=== PATIENT | male | born 1975 | race Two or more races ===

== ENCOUNTER 2018-06-03 07:59 | Day surgery (SDC) | payer BC, OTHER ==
[~2018-06-03] VITALS: Ht 177.8 cm; Wt 92.1 kg
[2018-06-03] VITALS (9 sets, daily range): BP systolic 131–148; BP diastolic 78–96
[2018-06-03] MEDS ORDERED: ASPIRIN81 MG ORAL (08:23)
[2018-06-03] MEDS ORDERED: fentaNYL 100 mcg/2 mL IV ONE (09:05)
[2018-06-03] MEDS ORDERED: Midazolam 2mg/2ml Inj ONE (09:05)
--- NOTE | 2018-06-03 09:12 | Pre-Procedure Note/Attestation ---
Pre-Procedure Note/Attestation Complete Prior to Procedure Planned Procedure: not applicable Procedure Narrative: esophagogastroduodenoscopy and colonoscopy Indications for Procedure Pre-Operative Diagnosis: abd pain Attestation I attest that I discussed the nature of the procedure; its benefits; risks and complications; and alternatives (and the risks and benefits of such alternatives ), prior to the procedure, with the patient (or the patient's legal territory representative). I attest that, if there was a reasonable possibility of needing a blood transfusion, the patient (or the patient's legal territory representative) was given the [facility] standardized written summary, pursuant to the Rene Bowdens Blood Safety Act ([place] Health and Safety Code # 1645, as amended). I attest that I re-evaluated the patient just prior to the surgery and that there has been no change in the patient's H&P, except as documented below: Adelso Rodriguez MD Jun 03, 2018 09:11
--- NOTE | 2018-06-03 09:13 | Short Stay Surgery H&P ---
History of Present Illness History of Present Illness Chief Complaint abd pain JORGE Benton is a 43 year old male who was admitted on for Abdominal Pain, Anemia Patient History Allergies: Coded Allergies: No Known Allergies (Unverified , 05/31/18) PAST MEDICAL HISTORY: (1) Coagulopathy (2) Mesenteric ischemia (3) Post-splenectomy Medication History Scheduled Aspirin* (Aspirin*), 81 MG ORAL DAILY, (Reported) Review of Systems Cardiovascular: Reports: no symptoms Respiratory: Reports: no symptoms Skeletal: Reports: no symptoms Gastrointestinal: Reports: no symptoms Genitourinary: Reports: no symptoms Neurologic: Reports: no symptoms Endocrine: Reports: no symptoms Hematologic: Reports: no symptoms Physical Exam Vital Signs Last Vital Signs Date Time Temp Pulse Resp B/P (MAP) Pulse Ox O2 Delivery O2 Flow Rate FiO2 06/03/18 08:25 97.8 73 18 131/91 97 Room Air Skin: normal HENT: normal Heart: normal Lungs: normal Abdomen: normal Extremities: normal Plan Plan of Care esophagogastroduodenoscopycand colonoscopy Attestation Are the patient's medical conditions optimized for surgery? Attestation Response: yes Adelso Rodriguez MD Jun 03, 2018 09:13
--- NOTE | 2018-06-03 10:38 | Anethesia Preoperative Eval ---
Anesthesia Pre-op PMH/ROS General Date of Evaluation: Jun 03, 2018 Time of Evaluation: 10:05 Anesthesiologist: [place] ASA Score: ASA 2 Mallampati Score Class I : Soft palate, uvula, fauces, pillars visible Class II: Soft palate, uvula, fauces visible Class III: Soft palate, base of uvula visible Class IV: Only hard plate visible Mallampati Classification: Class II Surgeon: Jennifer Diagnosis: Abdominal pain Surgical Procedure: EGD Colonoscopy Anesthesia History: none Family History: no anesthesia problems Allergies: Coded Allergies: No Known Allergies (Unverified , 05/31/18) Medications: see eMAR Patient NPO?: Yes Past Medical History Cardiovascular: Denies: HTN, CAD, [place], valve dz, arrhythmia, other Pulmonary: Denies: asthma, COPD, [place], other Gastrointestinal/Genitourinary: Reports: GERD, other - 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 Exam Physician Exam Last Vital Signs Date Time Temp Pulse Resp B/P (MAP) Pulse Ox O2 Delivery O2 Flow Rate FiO2 06/03/18 08:25 97.8 73 18 131/91 97 Room Air Constitutional: NAD Neurologic: CN 2-12 intact Cardiovascular: RRR, no M/R/G Respiratory: CTA Gastrointestinal: S/NT/ND Airway Exam Mallampati Score: Class II MO: full Neck: flexible ROM: full Teeth: intact Dentures: no upper, no lower Anesthesia Pre-op A/P Labs see chart Studies Pre-op Studies: EKG - NSR Risk Assessment & Plan Assessment: ASA 2 Plan: Alek Fischer MD Jun 03, 2018 10:38
[2018-06-03] MEDS ORDERED: LR 1000ml 1,000 ML IVLG SCH (10:48)
--- NOTE | 2018-06-03 10:48 | Immediate Post-Op Evaluation ---
Immediate Post-Op Evalulation Immediate Post-Op Evalulation Procedure: EGD Colonoscopy Date of Evaluation: Jun 03, 2018 Time of Evaluation: 10:47 IV Fluids: 600 Blood Products: none Estimated Blood Loss: none Urinary Output: none Blood Pressure Systolic: 140 Blood Pressure Diastolic: 96 Pulse Rate: 78 Respiratory Rate: 20 O2 Sat by Pulse Oximetry: 99 Temperature (Fahrenheit): 97.6 Pain Score (1-10): 1 Nausea: No Vomiting: No Complications none Patient Status: awake, patent, none Hydration Status: adequate Alek Ledezma MD Jun 03, 2018 10:48
[2018-06-03] MEDS ORDERED: fentaNYL 100 mcg/2 mL IV PRN (11:00)
--- NOTE | 2018-06-03 11:42 | 48 Hour Post Anesthesia Eval ---
Post Anesthesia Evaluation Procedure: EGD Colonoscopy Date of Evaluation: Jun 03, 2018 Time of Evaluation: 11:41 Blood Pressure Systolic: 152 0: 86 Pulse Rate: 78 Respiratory Rate: 20 Temperature (Fahrenheit): 96 O2 Sat by Pulse Oximetry: 98 Airway: patent Nausea: No Vomiting: No Pain Intensity: 1 Hydration Status: adequate Cardiopulmonary Status: stable Mental Status/LOC: patient returned to baseline Follow-up Care/Observations: n/a Post-Anesthesia Complications: none Follow-up care needed: ready to discharge Alek Ledezma MD Jun 03, 2018 11:42
--- NOTE | 2018-06-03 13:15 | Procedure Note ---
DATE OF PROCEDURE: 06/03/2018 SURGEON: Adelso Rodriguez M.D. PROCEDURE: Upper endoscopy with biopsy and colonoscopy. ANESTHESIA: Alek Ledezma M.D. INSTRUMENT: Olympus adult flexible upper endoscope and colonoscope. INDICATION: Abdominal pain and history of ischemic bowel. REASON FOR PROCEDURE: The procedure, risks, benefits, and possible consequences, including hemorrhage, aspiration, perforation and infection, and alternative treatments, were explained to the patient/legal guardian by Dr. Adelso Rodriguez and the patient/legal guardian understood and accepted these risks. DESCRIPTION OF PROCEDURE: After informed consent was obtained and the patient was adequately sedated, Olympus upper endoscope was advanced from the mouth into the second portion of duodenum and retroflexion was performed in the stomach. The patient had diffuse gastritis. Random biopsy from antrum was obtained to rule out H. pylori infection. Otherwise, the rest of the upper endoscopic examination was within normal limits. At this time, the upper endoscope was retrieved. The patient was turned over for colonoscopy. First, rectal exam was performed, which was normal. Then, the scope was advanced from the rectum into the cecum documented by appendiceal orifice, ileocecal valve, and right upper quadrant palpation. Quality of prep was very good. The patient had normal colonoscopy examination. No obvious mass, polyp, or any other pathology was seen. Retroflexion showed evidence of medium-sized nonbleeding internal hemorrhoids. The patient tolerated the procedure very well without any complication. SUMMARY OF FINDINGS: 1. Gastritis, status post biopsy. 2. Internal hemorrhoids. RECOMMENDATIONS: Follow up biopsy results and treat accordingly. I want to thank Dr. Helio Meyers, for this kind referral. Adelso Rodriguez M.D. DR: AMBIKA JOB#: [id number] CC: Helio Meyers M.D.; Fax#: [phone]
--- NOTE | 2018-06-07 09:58 | Endoscopy Procedure Note ---
Endoscopy Procedure Note General Indication for Procedure: screening colon, GERD Procedures Performed: EGD, colonoscopy Operative Findings/Diagnosis: gastritis, hemorrhoids Specimen: yes Pt Tolerated Procedure Well: Yes Estimated Blood Loss: none Anesthesia Anesthesiologist: carlene Anesthesia: MAC Inserted Devices Implant(s) used?: No Quality Quality of Bowel Preparation: Good Did scope reach the cecum?: Yes Was there any complications?: No GI Core Measures 50 yrs or older w/o bx or poly: No 10yrs. F/U not recommended: Yes If not recommended, why?: Above average risk 10 yrs. F/U needed: Yes 18 years or older w/prev. colo: No Adelso Rodriguez MD Jun 07, 2018 09:58
== END 2018-06-03 11:45 | disposition home or self-care (01) ==
LOC: GAS 07:59
DX: K29.70 Gastritis, unspecified, without bleeding (principal); B96.81 Helicobacter pylori [H. pylori] as the cause of diseases classified elsewhere; D64.9 Anemia, unspecified; K64.8 Other hemorrhoids; K21.9 Gastro-esophageal reflux disease without esophagitis; Z79.82 Long term (current) use of aspirin
CPT/HCPCS: 43239; 45378; J2250; J3010; 94003; 94150

== ENCOUNTER → 2018-12-16 | Outpatient (CLI) | payer BC, OTHER ==
[~2018-12-16] MED LIST: ASPIRIN81 MG ORAL
== END | disposition home or self-care (01) ==
LOC: LAB 14:32
DX: K29.70 Gastritis, unspecified, without bleeding (principal); B96.81 Helicobacter pylori [H. pylori] as the cause of diseases classified elsewhere
CPT/HCPCS: 83013